=== PATIENT | male | born 1995 | race African-American/Black ===

== ENCOUNTER 2019-12-04 10:12 | Emergency (ER) | payer BC, SELFPAY ==
[2019-12-04 10:15] VITALS: BP 133/77; PULSE 57; RESP 18; TEMP 36.9; O2SAT 99
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
== END 2019-12-04 10:46 | disposition home or self-care (01) ==
PROVIDERS: Emergency Provider Emergency Medicine
DX: H93.11 Tinnitus, right ear (principal); Z77.122 Contact with and (suspected) exposure to noise
CPT/HCPCS: 99281